=== PATIENT | female | born 1990 | race African-American/Black ===

== ENCOUNTER 2017-01-13 18:43 | Observation (INO) | payer MEDICAID ==
[~2017-01-13] VITALS: Ht 157.5 cm; Wt 87.1 kg
[2017-01-13] MEDS ORDERED: IRON1CAP20 PO (19:44)
[2017-01-13] MEDS ORDERED: PREN-55 PO (19:44)
[2017-01-13] MEDS ORDERED: ACETAMINOPHEN 500MG TABLET PO NR (19:45)
[2017-01-13] MEDS: LACTATED RINGERS 1,000 ML IV SCH (22:12)
[2017-01-13] MEDS ORDERED: TERBUTALINE SULFATE 1MG/ML VIAL SUBCUT NR (22:45)
[2017-01-14] MEDS: LACTATED RINGERS 1,000 ML IV SCH (01:07)
== END 2017-01-14 08:10 | disposition home or self-care (01) ==
LOC: L&D 18:43
PROVIDERS: ADMIT Obstetrics & Gynecology; ATTEND Obstetrics & Gynecology
DX: O26.892 Other specified pregnancy related conditions, second trimester (principal); R10.9 Unspecified abdominal pain; Z3A.25 25 weeks gestation of pregnancy
CPT/HCPCS: 76805; 76830; 96360; 96361; 96372; 99281; G0378; J3105; J7120; 59412; 96365